=== PATIENT | male | born 1990 | race Caucasian/White ===

== ENCOUNTER 2024-10-05 19:20 | Emergency (ER) | payer SELFPAY ==
[2024-10-05] MEDS: Ondansetron 4 MG/2 ML SDV IVPUSH ONE (19:42)
[2024-10-05] MEDS: Sodium Chloride 0.9% 1,000 ML IV ONE (19:42)
[2024-10-05 19:46] LABS: BASOPHILS PERCENT AUTO 0.3 % (0.0-1.0); EOSINOPHILS PERCENT AUTO 0.8 % (1.0-3.0); HEMATOCRIT 45.2 % (40.0-54.0); HEMOGLOBIN 14.8 g/dL (14.0-18.0); LYMPHOCYTES PERCENT AUTO 13.2 % (20.5-50.1); MEAN CORPUSCULAR HEMOGLOBIN 29.4 pg (27.0-34.0); MEAN CORPUSCULAR HGB CONC 32.7 g/dL (33.0-35.0); MEAN CORPUSCULAR VOLUME 89.7 fL (80-100); MONOCYTES PERCENT AUTO 11.4 % (2-8); NEUTROPHILS PERCENT AUTO 74.3 % (42.2-75.2); PLATELET COUNT,PLT 313 10^3/uL (150-450); RED BLOOD CELL COUNT 5.04 10^6/uL (4.6-6.2); WHITE BLOOD CELL COUNT,WBC 13.2 10^3/uL (5.0-10.0)
[2024-10-05 20:10] LABS: A/G RATIO 0.9; ALANINE AMINOTRANSFERASE,ALT 75 U/L (16-63); ALBUMIN 4.1 g/dL (3.4-5.0); ALKALINE PHOSPHATASE 96 U/L (46-116); ANION GAP 10.4 mEq/L (7-13); ASPARTATE AMNIOTRANSFERASE,AST 38 U/L (15-37); BILIRUBIN TOTAL 1.2 mg/dL (0.2-1.0); BLOOD UREA NITROGEN,BUN 20 mg/dL (7-18); BUN/CREATININE RATIO 18.5 (No establ ref range); CARBON DIOXIDE,CO2 33 mmol/L (21-32); CHLORIDE,CL 101 mmol/L (98-107); CREATININE 1.08 mg/dL (0.70-1.30); EST CRCL DRUG DOSING (CG) 81.46 mL/min; GLUCOSE RANDOM 109 mg/dL (70-99); LIPASE 27 U/L (16-77); MAGNESIUM 2.2 mg/dL (1.8-2.4); POTASSIUM,K 3.4 mmol/L (3.5-5.1); PROTEIN TOTAL,TP 8.7 g/dL (6.4-8.2); SODIUM,NA 141 mmol/L (136-145)
[2024-10-05 20:11] LABS: LACTIC ACID 0.9 mmol/L (0.4-2.0)
[2024-10-05 20:12] LABS: ESTIMATED GFR 93 mL/min (>=60); ETHANOL BLOOD MEDICAL < 3 mg/dL (0)
[2024-10-05] MEDS: Metoclopramide 10 MG/2 ML SDV IVPUSH ONE (21:02)
[2024-10-05] MEDS: Ketorolac 30 MG/ML SDV IVPUSH ONE (21:02)
[2024-10-05] MEDS: Albuterol/Ipratropium 3.0-0.5 MG/3 ML Neb Soln NEB ONE (21:02)
[2024-10-05] MEDS: Iopamidol 755 Mg/ML 100 ML Bottle IVPUSH ONE (21:42)
[2024-10-05] MEDS: LORazepam 2 MG/ML SDV IVPUSH ONE (22:24)
[2024-10-05] MEDS: Albuterol 0.083% 2.5 MG/3 ML Neb Soln NEB ONE (23:03)
[2024-10-05] MEDS: Dexamethasone 4 MG/ML SDV IVPUSH ONE (23:04)
[2024-10-05] MEDS: Famotidine 20 MG/2 ML SDV IVPUSH ONE (23:06)
[2024-10-05 23:39] LABS: O2 DELIVERY DEVICE NASAL CANNULA
[2024-10-05 23:47] LABS: BASE EXCESS VENOUS 5.9 mmol/l ((-2)-(+3)); BICARBONATE,VENOUS 32 mmol/l (19-25); O2 SATURATION VENOUS 99.3 % (60-80); PCO2 VENOUS 56 mmHg (41-51); PH,VENOUS 7.38 (7.31-7.41); PO2 VENOUS 157 mmHg (35-42)
[2024-10-06 00:43] LABS: APPEARANCE,URINE SLIGHTLY CLOUDY (CLEAR); BILIRUBIN,URINE NEGATIVE (NEGATIVE); COLOR,URINE YELLOW (YELLOW); GLUCOSE,URINE NEGATIVE (NEGATIVE); KETONES,URINE 15 (NEGATIVE); LEUKOCYTE ESTERASE,URINE NEGATIVE (NEGATIVE); NITRITE,URINE NEGATIVE (NEGATIVE); OCCULT BLOOD,URINE NEGATIVE (NEGATIVE); PROTEIN,URINE 100 (NEGATIVE); UROBILINOGEN,URINE 0.2 mg/dL (0.2-1.0)
[2024-10-06 00:49] LABS: AMPHETAMINES,URINE NEGATIVE (NEGATIVE); BARBITURATES,URINE NEGATIVE (NEGATIVE); BENZODIAZEPINE,URINE POSITIVE (NEGATIVE); MDMA (ECSTASY), URINE NEGATIVE (NEGATIVE); METHADONE,URINE NEGATIVE (NEGATIVE); METHAMPHETAMINES,URINE NEGATIVE (NEGATIVE); OPIATES,URINE NEGATIVE (NEGATIVE); OXYCODONE,URINE NEGATIVE (NEGATIVE); PHENCYCLIDINE,URINE NEGATIVE (NEGATIVE); TCA,URINE NEGATIVE (NEGATIVE)
[2024-10-06 00:53] LABS: AMORPHOUS SEDIMENT,URINE MANY /HPF (NOT SEEN); BACTERIA,URINE FEW /HPF (0-FEW/HPF); EPITHELIAL CELLS,URINE RARE /HPF (NOT SEEN); MUCUS,URINE FEW /LPF (NOT SEEN); RBC,URINE 0-5 /HPF (0-5)
[2024-10-06] MEDS: Take Home: Ondansetron 4 MG Tab.DIS, 5 Tab Pack PO ONE (01:16)
== END 2024-10-06 01:20 | disposition home or self-care (01) ==
LOC: DL.ED 19:20
DX: R11.2 Nausea with vomiting, unspecified (principal)
CPT/HCPCS: 36415; 71045; 71275; 80053; 80305; 80307; 81001; 82803; 83605; 83690; 83735; 84484; 85025; 87428; 96361; 96374; 96375; 99285; J1100; J1885; J2060; J2405; J2765; J7030; J7613; J7620; Q0162; Q9967; 99283; A9270-GY